=== PATIENT | male | born 1995 | race Caucasian/White ===

== ENCOUNTER → 2018-09-04 | Outpatient (CLI) | payer OTHER, BC ==
[~2018-09-04] VITALS: Ht 185.4 cm; Wt 98.0 kg
[~2018-09-04] MED LIST: TRAMADOL 50 MG50 MG PO; ZANAFLEX4 MG PO
--- NOTE | ~2018-09-04 | HPC ---
[facility] [address] [place] [address] PAIN MANAGEMENT CONSULTATION Name: VIKI MIRANDA Room #: REG CL Mary.#: [id number] Admission: 09/04/18 Attend Phys: Terence Blankenship MD Discharge: Date of : 89 Report #: [id number] THIS REPORT FOR: //name// CC: Giacomo Blankenship DATE OF SERVICE: 09/04/2018 CHIEF COMPLAINT: Low back pain with radiation into both legs. The patient is a 23-year-old with a perplexing pain problem. He has had longstanding back pain that radiates through his hips, which he describes as a constant pain, but if drives out too briskly or runs, when he exercises he has a numbness sensation in his left leg and it goes weak. He also has frequently unusual dysesthesia, which he describes as a sensation like water running down the inside of both of his thighs. This occurs frequently. Overall daily, he complains of pain on the level of 5/10 and at times it is 10/10. He has had pain dating back over a decade, but relates much of his pain to 2011 when he was injured in a football game. He was struck from behind and was taken off the field. His pain was persistent long enough that he was taken to the hospital, but discharged the following day. There was never an official diagnosis made at that time nor was surgery performed and he ultimately recovered fairly well. He has, however, continued to have pain on and off and episodically will have a severe flareup. Three months ago, he was playing football 4 on 4 with some of his old mates from college and as he went out for a long pass he collapsed and was incontinent of urine. He was taken to the hospital and an MRI was performed, which did not show any evidence of cauda equina syndrome or canal obstruction, but he was unable to go to work for 4 days and still required a wheelchair until he gradually improved. The pain is somewhat better, but now is described as a constant daily pain and his pain drawing shows pain in his back radiating into the left hip primarily and then he has a numbness sensation like peripheral neuropathy in both feet. It should also be noted that the past history is significant for a childhood injury. When he was 1 years of age, he was injured by roll over and fractured his left femur in four places. He was immobilized and has recovered obviously fairly well from that injury, but it may play some role in this perplexing problem. He also on the left underwent a knee surgery in 2012, a partial meniscectomy. He has tried chiropractic treatments, but they have not been very effective. His is a ict trainer and works out with him on daily and regular basis. It should be noted that he also underwent a series of three epidural injections that were very uncomfortable performed in [place], [place] over a year ago. He [address] [address] PAIN MANAGEMENT CONSULTATION Name: VIKI MIRANDA Room #: REG SHANTELL Peacock#: [id number] Admission: 09/04/18 Attend Phys: Terence Blankenship MD Discharge: Date of : 89 Report #: [id number] did not obtain any lasting relief. MEDICATIONS: Currently, tramadol 50 mg p.r.n. and tizanidine 4 mg. ALLERGIES: None. REVIEW OF SYSTEMS: Positive for night sweats, generalized weakness, constipation, abdominal pain, nocturia, kidney stones, insomnia, nervousness and he has described some difficulty with sexual performance recently with his injury. 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 Denies the use of tobacco, but drinks alcohol a 6-pack or so a week. PHYSICAL EXAMINATION: GENERAL: Very pleasant, outgoing gentleman is 23 years old. VITAL SIGNS: He is 6 feet, 1 inches, 216 pounds, BMI of 28.5, blood pressure is 121/81, heart rate 83 and respirations 14. He moves easily from sitting to standing position. Gait is nonantalgic. CHEST: Clear. CARDIAC: Rhythm is regular. BACK: Examination of the spine reveals normal alignment. Good range of motion. No tenderness located over midline, but he has some discomfort slightly to the left of the midline in the area of the sacroiliac joint. This is mild. Straight leg raising in the supine and sitting position reveals significant tightness in the hamstrings bilaterally, worse on the left than the right. Sensation is intact to light touch. Deep tendon reflexes are increased throughout the upper and lower extremities, 3+ biceps, triceps, brachioradialis, knees and ankles without asymmetry. Strength is normal. MRI scan is reviewed and there is no significant central or neural foraminal compression that I can see. The patient reports that his past history includes an EMG, which I do not have results, but I am told that it showed no evidence of nerve injury. I guess I should note that there is a very small superimposed disk protrusion at L5-S1 without significant displacement of nerves nor does it cause neural foraminal stenosis, but it was noted by the radiologist. IMPRESSION: Perplexing chronic low back pain with bilateral dysesthesias and some left-sided radiculopathy. He has failed epidural injections. I did not recommend repeating them today. I feel as though there may be a piece missing that might relate back to his previous traumas including the childhood injury that caused his left femur to be [facility] [address] [place] [address] PAIN MANAGEMENT CONSULTATION Name: VIKI MIRANDA Room #: REG CLRenetta Hernandez.#: [id number] Admission: 09/04/18 Attend Phys: Terence Blankenship MD Discharge: Date of : 89 Report #: [id number] fractured in 4 places as well as the college football injury requiring hospitalization. MRI scans are excellent for soft tissue injuries, but oftentimes do not picking supervisor on small spondylitic fractures. I have ordered CT scan of the pelvis and lumbar spine without contrast. We will review this at his followup visit and consider treatments at that time. In the meantime, I would continue remaining active. There is not much else we can do. I do not see anything surgical in this condition. I will try not to repeat injections that have already shown lack of benefit. He is young to begin him on medication regimen, but would consider the possibility of a daily dose of gabapentin to see if this would help with the neuropathic symptoms. By: [id number] Terence Blankenship MD /nt
[2018-09-04 13:58] VITALS: BP 121/81
== END ==
LOC: PAIN 06:51
DX: M54.16 Radiculopathy, lumbar region (principal); G89.29 Other chronic pain; R20.8 Other disturbances of skin sensation